=== PATIENT | female | born 1995 | race Caucasian/White ===

== ENCOUNTER 2019-03-20 17:54 | Inpatient (IN) | payer MEDICAID ==
[2019-03-20] MEDS ORDERED: LORazepam 2 MG/ML SDV IVPUSH ONE ×2 (18:40→20:47)
[2019-03-20] MEDS ORDERED: Sodium Chloride 0.9% 10 ML Syringe FLUSH PRN (18:41)
[2019-03-20] MEDS ORDERED: Lactated Ringers 1,000 ML IV ONE ×2 (18:43→19:50)
--- NOTE | 2019-03-20 20:50 | EDM.PDOCBH ---
ED HPI GENERAL MEDICAL PROBLEM - General Chief Complaint: Behavioral/Psych Stated Complaint: PYSCH Time Seen by Provider: 03/20/19 19:45 Source of Information: Reports: Patient, Family (mother ) History Limitations: Reports: Altered Mental Status (flight of thought and manic behavior), Combative/Threatening (resistant to cares and evaluation ) - History of Present Illness INITIAL COMMENTS - FREE TEXT/NARRATIVE: 24 year old female brought to ER by mother due to out of control behavior. Mother called the ER before arriving due to daughter's out of control behavior and traumatic events. Patient has a known history of drug use with previous treatment within the last 2-3 years. Patient's mother is at bedside and supportive. Mother did not believe her daughter was successfully at treatment due to manipulating the treatment system not begin truthful. Patient was jailed for the last 44 days which she was free of drug use. Patient is/was living with significant other in the area. Patient was released from [facility] on Thursday this week. Patient returned to significant other and used drugs "at lot of drugs" including Heroine, Meth and Marijuana over the last 4 days. Patient got angry with significant other today and walked out of her living situation and walked from [place] to [place] this afternoon. Patient was wearing sandals on her walk and did not bring any water or thoughts of group home or cell phone. Patient arrived at the bar in [place] and was given food by patrons. Patient got a hold of mother whom drove from [place] this afternoon to find daughter and bring her to the Er for assessment. History is very limited due to patient is a very poor historian with flight of thoughts, manic speech and behavior. Mother denies child have at psychiatric medications or diagnosis in the past. Patient had a rather long history of drug use/abuse - Related Data Allergies Allergy/AdvReac Type Severity Reaction Status Date / Time No Known Allergies Allergy Verified 03/20/19 18:38 Home Meds: Home Meds NK [No Known Home Meds] 03/20/19 [History] Past Medical History Musculoskeletal History: Reports: Fracture Psychiatric History: Reports: Addiction, Anxiety, Depression - Past Surgical History HEENT Surgical History: Reports: Oral Surgery, Tonsillectomy GI Surgical History: Reports: Appendectomy Social & Family History - Tobacco Use Smoking Status *Q: Current Every Day Smoker Years of Tobacco use: 4 Packs/Tins Daily: 0.5 - Caffeine Use Caffeine Use: Reports: Coffee - Recreational Drug Use Recreational Drug Use: Yes Recreational Drug Type: Reports: Heroin, Marijuana/Hashish, Methamphetamine Recreational Drug Use Frequency: Binges ED ROS GENERAL - Review of Systems Review Of Systems: Unable To Obtain (manic and flight of thought) ED EXAM, BEHAVIORAL HEALTH - Physical Exam Exam: See Below Exam Limited By: Altered Mental Status (manic and flight of thoughts) General Appearance: Alert, Anxious, Severe Distress Eye Exam: Bilateral Eye: EOMI, PERRL Ears: Hearing Grossly Normal Nose: Normal Inspection, Normal Mucosa Throat/Mouth: Normal Inspection, Normal Lips, Normal Voice, No Airway Compromise Head: Normocephalic Neck: Normal Inspection, Full Range of Motion Respiratory/Chest: No Respiratory Distress, Normal Breath Sounds Cardiovascular: Regular Rate, Rhythm, Tachycardia GI/Abdominal: Non-Tender (Female) Exam: Deferred Back Exam: Normal Inspection, Full Range of Motion, NT Extremities: Normal Inspection, Normal Range of Motion, No Pedal Edema, Leg Pain (bruising doral aspect of bilateral feet with swelling ) Neurological: CN II-XII Intact, Inattentive (unable to follow conversation or commands due to inability to focus due to manic speech, bahavior and fight of thoughts ) COURSE, BEHAVIORAL HEALTH COMP - Course Vital Signs: Last Vital Signs Temp 35.6 C 03/20/19 18:39 Pulse 110 H 03/20/19 21:17 Resp 16 03/20/19 21:17 BP 114/80 03/20/19 21:17 Pulse Ox 96 03/20/19 21:17 Orders, Labs, Meds: Active Orders 24 hr Category Date Time Status Cardiac Monitoring [RC] .As Directed Care 03/20/19 18:41 Active Peripheral IV Care [RC] . DIRECTED Care 03/20/19 18:42 Active Vital Signs [RC] PFP Care 03/20/19 18:41 Active Foot Comp Min 3V Lt [CR] Stat Exams 03/20/19 20:48 Taken Foot Comp Min 3V Rt [CR] Stat Exams 03/20/19 20:49 Taken Lactated Ringers [Ringers, Lactated] 1,000 ml Med 03/20/19 21:00 Active IV ASDIRECTED Sodium Chloride 0.9% [Saline Flush] Med 03/20/19 18:41 Active 10 ml FLUSH ASDIRECTED PRN Peripheral IV Insertion Adult [OM.PC] Urgent Oth 03/20/19 18:41 Ordered Saline Lock Insert [OM.PC] Routine Oth 03/20/19 18:41 Ordered Medication Orders Acetaminophen (Tylenol) 650 mg PO Q4H PRN PRN Reason: Pain Lactated Ringer's (Ringers, Lactated) 1,000 mls @ 150 mls/hr IV ASDIRECTED ELVIE Last Admin: 03/20/19 21:08 Dose: 150 mls/hr Lorazepam (Ativan) 0 mg IVPUSH Q4H PRN PRN Reason: Anxiety Sodium Chloride (Saline Flush) 10 ml FLUSH ASDIRECTED PRN PRN Reason: Keep Vein Open Last Admin: 03/20/19 19:02 Dose: 10 ml Laboratory Tests 03/20/19 03/20/19 Range/Units 18:59 18:59 WBC 21.2 H (4.5-11.0) K/uL RBC 5.40 (3.30-5.50) M/uL Hgb 16.1 H (12.0-15.0) g/dL Hct 45.8 (36.0-48.0) % MCV 85 (80-98) fL MCH 30 (27-31) pg MCHC 35 (32-36) % Plt Count 363 (150-400) K/uL Neut % (Auto) 72 H (36-66) % Lymph % (Auto) 16 L (24-44) % Bullitt % (Auto) 12 H (2-6) % Eos % (Auto) 0 L (2-4) % Baso % (Auto) 0 (0-1) % Sodium 140 (140-148) mmol/L Potassium 3.6 (3.6-5.2) mmol/L Chloride 103 (100-108) mmol/L Carbon Dioxide 20 L (21-32) mmol/L Anion Gap 20.6 H (5.0-14.0) mmol/L BUN 25 H (7-18) mg/dL Creatinine 2.3 H (0.6-1.0) mg/dL Est Cr Clr Drug Dosing 34.23 mL/min Estimated GFR (MDRD) 26 L (>60) Glucose 88 (74-106) mg/dL Calcium 9.3 (8.5-10.1) mg/dL Total Bilirubin 0.9 (0.2-1.0) mg/dL AST 72 H (15-37) U/L ALT 46 (12-78) U/L Alkaline Phosphatase 78 (46-116) U/L Creatine Kinase 3465 H (26-192) U/L Total Protein 8.4 H (6.4-8.2) g/dL Albumin 4.9 (3.4-5.0) g/dL Globulin 3.5 (2.3-3.5) g/dL Albumin/Globulin Ratio 1.4 (1.2-2.2) Medications Generic Name Dose Route Start Last Admin Trade Name Anel PRN Reason Stop Dose Admin Acetaminophen 650 mg 03/20/19 21:58 Tylenol PO Q4H PRN Pain Lactated Ringer's 1,000 mls @ 150 mls/hr 03/20/19 21:00 03/20/19 21:08 Ringers, Lactated IV 150 mls/hr ASDIRECTED ELVIE Administration Lorazepam 0 mg 03/20/19 21:58 Ativan IVPUSH Q4H PRN Anxiety Sodium Chloride 10 ml 03/20/19 18:41 03/20/19 19:02 Saline Flush FLUSH 10 ml ASDIRECTED PRN Administration Keep Vein Open Discontinued Medications Generic Name Dose Route Start Last Admin Trade Name Anel PRN Reason Stop Dose Admin Lactated Ringer's 1,000 mls @ 1,000 mls/hr 03/20/19 18:43 03/20/19 18:58 Ringers, Lactated IV 03/20/19 19:42 1,000 mls/hr BOLUS ONE Administration Lactated Ringer's 1,000 mls @ 1,000 mls/hr 03/20/19 19:50 03/20/19 20:02 Ringers, Lactated IV 03/20/19 20:49 1,000 mls/hr BOLUS ONE Administration Lorazepam 2 mg 03/20/19 18:40 03/20/19 18:59 Ativan IVPUSH 03/20/19 18:41 2 mg ONETIME ONE Administration Lorazepam 2 mg 03/20/19 20:47 03/20/19 21:11 Ativan IVPUSH 03/20/19 20:48 2 mg ONETIME ONE Administration Re-Assessment/Re-Exam: IV access obtained, IVF LR 1,000ml/hr, baseline lab obtained. Obvious drug abuse and withdrawal syptoms with manic behavior and generalized muscle aches and pain. Initial vital signs concerns form severe dehydration with tachycardiac and hypotension noted. I have increased concern regarding acute kidney injury secondary to dehydration, rhabdomyolysis, and manic behavior. Patient found water in a ditch on her 8 mile walk and took a drink from the muddy water which may cause GI concerns in the next 2-5 days. Patient complaining of bilateral foot injury, bruising due to walking miles in sandals. Blood test confirm acute kidney injury with Creatine 2.3 eGFR 26, Stage G4 with severe rhabdomyolysis with CPK 3465. Patient was given 2 liters of LR then third liter at 150cc per hour. Patient was given repeat doses of Ativan to control behavior. Patient remained tachycardic during entire ER visit despite IVF, and ativan. Urine drug test positive for multiple illicit substances. I considered giving an antipsychotic for psychosis with acute anxiety with jt, flight of thoughts and behavior concerns. I spoke with hospitalist whom felt admission to ICU with monitoring would be most appropriate. I educated mother regarding blood tests and concerns regarding kidney injury due to dehydration and rhabdomyolysis which will require repeat testing and continuous IVF for correction and renal protection. remaining electrolytes without acute concerns. Patient continues to be manic and flight of thoughts but behavior is improved. I am unsure if patient has slept in the last 3-4 days. Patient ate at the bar her mother picked her up and gave her chips during per ER visit. Departure - Departure Time of Disposition: 20:52 Disposition: Admitted As Inpatient 66 Clinical Impression: Acute kidney injury (nontraumatic), Dehydration after exertion, Psychosis due to emotional stress, Anxiety, Rhabdomyolysis, Drug use, Drug-induced psychotic disorder - Discharge Information - My Orders Last 24 Hours: My Active Orders 03/20/19 18:41 Cardiac Monitoring [RC] .As Directed Vital Signs [RC] PFP Sodium Chloride 0.9% [Saline Flush] 10 ml FLUSH ASDIRECTED PRN Peripheral IV Insertion Adult [OM.PC] Urgent Saline Lock Insert [OM.PC] Routine 03/20/19 18:42 Peripheral IV Care [RC] . DIRECTED 03/20/19 20:48 Foot Comp Min 3V Lt [CR] Stat 03/20/19 20:49 Foot Comp Min 3V Rt [CR] Stat 03/20/19 21:00 Lactated Ringers [Ringers, Lactated] 1,000 ml IV ASDIRECTED - Assessment/Plan Last 24 Hours: My Active Orders 03/20/19 18:41 Cardiac Monitoring [RC] .As Directed Vital Signs [RC] PFP Sodium Chloride 0.9% [Saline Flush] 10 ml FLUSH ASDIRECTED PRN Peripheral IV Insertion Adult [OM.PC] Urgent Saline Lock Insert [OM.PC] Routine 03/20/19 18:42 Peripheral IV Care [RC] . DIRECTED 03/20/19 20:48 Foot Comp Min 3V Lt [CR] Stat 03/20/19 20:49 Foot Comp Min 3V Rt [CR] Stat 03/20/19 21:00 Lactated Ringers [Ringers, Lactated] 1,000 ml IV ASDIRECTED
[2019-03-20] MEDS: Lactated Ringers 1,000 ML IV SCH (21:08)
--- NOTE | 2019-03-20 22:56 | CRLCR ---
BILATERAL FEET INDICATION: Bilateral foot pain and swelling. COMPARISON: None. FINDINGS/IMPRESSION: There is a suggestion of callous formation about the neck of the distal right 4th metatarsal, possibly representing a subacute or chronic nondisplaced fracture. No acute fractures are identified. No definite arthritic changes are seen. There is no dislocation in either foot. Included soft tissues are within normal limits. Dictated by Rambo Pollard MD @ 03/20/2019 10:53:00 PM Dictated by: Rambo Pollard MD @ 03/20/2019 22:55:55 (Electronically Signed)
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
[2019-03-21] MEDS: LORazepam 2 MG/ML SDV IVPUSH PRN ×2 (01:57→22:27)
[2019-03-21] MEDS: Lactated Ringers 1,000 ML IV SCH ×2 (02:04→09:07)
--- NOTE | 2019-03-21 06:34 | PN ---
DATE OF SERVICE: 03/21/2019 SUBJECTIVE: A 24-year-old female with history of drug use, was recently discharged from [facility]. She was picked up by acquaintances and spent subsequent 4 days with her acquaintances in [place]. On her departure from the residence yesterday, she walked a distance of greater than 8 miles to [place] where her mother picked her up and transported her to the emergency room. By her admission, she had been using illicit agents including IV heroin and methamphetamine and was admitted with complaints of generalized pain, anxiety, and dehydration as well as suggestion of rhabdomyolysis. She had general restlessness in the fly tier hours subsequently quieting with administration of IV Ativan and has slept the remainder of the night. Her vital signs remained stable. She has not yet voided. Bladder scan shows volume of urine held within the bladder. She has had no incontinence. Resting comfortably. OBJECTIVE: Intake 1110 mL, output nil since admission. VITAL SIGNS: Temperature 36.1, pulse 85 with sinus rhythm by cardiac monitoring, blood pressure 106/62, respiratory rate 19 with O2 saturations of 97%. GENERAL: Resting comfortably. No acute respiratory distress at the current time. IMPRESSION AND PLAN: 1. Rhabdomyolysis with acute renal injury and noted elevated creatinine on admission. A.m. labs are pending this morning. We will continue to provide IV fluids. Monitor creatine kinase and renal functions. Allow dietary intake as tolerated and provide Ativan as needed for agitation and restlessness. We will need to engage discharge planning and arrangements for outpatient followup following discharge from the hospital and it is indicated that mother will be transporting Yoli back to the [place], [place] area her usual place of residence. 2. Illicit drug use as noted above. Will require re-involvement in aftercare program following discharge. William Bailey MD /[id number]
[2019-03-21] MEDS: Acetaminophen 325 MG Tab PO PRN ×3 (07:39→22:27)
[2019-03-21] MEDS: Sodium Chloride 0.9% 1,000 ML IV SCH ×2 (13:20→20:53)
--- NOTE | 2019-03-21 14:08 | CT ---
Head wo Cont CLINICAL HISTORY: Slurred speech, confusion COMPARISON: None TECHNIQUE: Transverse scans were obtained from the base of the skull through the vertex without IV contrast on a multislice, multidetector CT scanner. Auto dosage reduction and iterative reconstruction techniques employed. FINDINGS: No focal abnormal parenchymal density is identified. There is no mass effect, hemorrhage, or extraaxial collection. The basal cisterns and sulci over the convexities are normal. The ventricles are normal. IMPRESSION: Negative noncontrast CT brain for age
[2019-03-21] MEDS ORDERED: Nicotine Polacrilex 2 MG Gum CHEW PRN (14:30)
[2019-03-21] MEDS: Nicotine 14 MG/24 Hr Patch TRDERM SCH (15:56)
[2019-03-22] MEDS: Sodium Chloride 0.9% 1,000 ML IV SCH (04:09)
[2019-03-22] MEDS: Nicotine 14 MG/24 Hr Patch TRDERM SCH (09:23)
--- NOTE | 2019-03-22 13:15 | PCM.DCSUM1 ---
Discharge Summary - Hospital Course Brief History: Ms. Viramontes is a 24-year-old woman who was admitted through the emergency department with elevation in CK and acute kidney injury, secondary to overexertion and dehydration. - Discharge Data Discharge Date: 03/22/19 Discharge Disposition: Home, Self-Care 01 Condition: Fair - Discharge Diagnosis/Problem(s) (1) Acute kidney injury (nontraumatic) SNOMED Code(s): 123814609079861 ICD Code: N17.9 - ACUTE KIDNEY FAILURE, UNSPECIFIED Status: Acute Current Visit: Yes (2) Dehydration after exertion SNOMED Code(s): 314621020 ICD Code: E86.0 - DEHYDRATION Status: Acute Current Visit: Yes (3) Anxiety SNOMED Code(s): 80153349 ICD Code: F41.9 - ANXIETY DISORDER, UNSPECIFIED Status: Acute Current Visit: Yes (4) Rhabdomyolysis SNOMED Code(s): 738996292 ICD Code: M62.82 - RHABDOMYOLYSIS Status: Acute Current Visit: Yes (5) Drug use SNOMED Code(s): 153637098 ICD Code: F19.90 - OTHER PSYCHOACTIVE SUBSTANCE USE, UNSPECIFIED, UNCOMPLICATED Status: Acute Current Visit: Yes - Patient Summary/Data Hospital Course: Ms. Viramontes is a 24-year-old woman who was admitted through the emergency department with rhabdomyolysis and acute kidney injury, secondary to overexertion and dehydration. On the day of admission she had walked many miles with poor intake of liquids. She was very fatigued and weak with pain in both legs and feet. On evaluation in emergency department her CK level was noted to be elevated 3400 and her creatinine was 2.1. Other than the exertion she denied any specific injury.urine drug screen and obtained at the time of admission was positive for benzodiazepines, opioids, and methamphetamine. She was somewhat agitated in the emergency department and did receive IV lorazepam. On admission she was given IV fluids for hydration. The morning after admission CK had increased to 4200 and renal function had normalized. IV fluids were continued over the next 24 hours, on the morning of discharge CK level had improved to 2400 and renal function remain normal. She is instructed to maintain low activity level over the next week and have good intake of oral fluids. CT scan of the head without contrast was obtained after admission because of confusion and some slurred speech. CT scan of the head was unremarkable showing no significant abnormalities. She will be on limited activity as noted above and will resume a normal diet. Follow-up appointment will be scheduled with her primary care provider within one week. BMP and CK should be obtained at the time of follow-up appointment. - Patient Instructions Diet: Usual Diet as Tolerated Activity: No Strenuous Activities (for the next 7 days) Other/Special Instructions: Please schedule follow-up appointment with primary care provider within one week. BMP and CK should be obtained at the time of follow-up appointment. - Discharge Plan *PRESCRIPTION DRUG MONITORING PROGRAM REVIEWED*: Not Applicable *COPY OF PRESCRIPTION DRUG MONITORING REPORT IN PATIENT DEBI: Not Applicable Home Medications: Home Meds NK [No Known Home Meds] 03/20/19 [History] Referrals: PCP,None [Primary Care Provider] - - Discharge Summary/Plan Comment DC Time >30 min.: No - Patient Data Vitals - Most Recent: Last Vital Signs Temp 94.9 F L 03/22/19 11:42 Pulse 103 H 03/22/19 11:42 Resp 16 03/22/19 11:42 BP 105/72 03/22/19 11:42 Pulse Ox 98 03/22/19 11:42 Weight - Most Recent: 186 lb 3.203 oz I&O - Last 24 hours: Intake & Output 03/21/19 03/22/19 03/22/19 22:59 06:59 14:59 Intake Total 2286 1457 600 Output Total 550 750 Balance 1736 1457 -150 Lab Results - Last 24 hrs: Laboratory Results - last 24 hr 03/22/19 Range/Units 04:50 Sodium 144 (140-148) mmol/L Potassium 4.3 (3.6-5.2) mmol/L Chloride 111 H (100-108) mmol/L Carbon Dioxide 27 (21-32) mmol/L Anion Gap 10.3 (5.0-14.0) mmol/L BUN 6 L D (7-18) mg/dL Creatinine 0.7 (0.6-1.0) mg/dL Est Cr Clr Drug Dosing 121.23 mL/min Estimated GFR (MDRD) > 60 (>60) Glucose 93 (74-106) mg/dL Calcium 8.2 L (8.5-10.1) mg/dL Creatine Kinase 2313 H (26-192) U/L Med Orders - Current: Current Medications Acetaminophen (Tylenol) 650 mg PO Q4H PRN PRN Reason: Pain Last Admin: 03/21/19 22:27 Dose: 650 mg Sodium Chloride (Normal Saline) 1,000 mls @ 125 mls/hr IV ASDIRECTED [facility] Last Admin: 03/22/19 04:09 Dose: 125 mls/hr Lorazepam (Ativan) 0 mg IVPUSH Q4H PRN PRN Reason: Anxiety Last Admin: 03/21/19 22:27 Dose: 1 mg Nicotine (Habitrol) 14 mg TRDERM DAILY [facility] Last Admin: 03/22/19 09:23 Dose: 14 mg Nicotine Polacrilex (Nicorelief) 2 mg CHEW Q1H PRN PRN Reason: nicotine needs Sodium Chloride (Saline Flush) 10 ml FLUSH ASDIRECTED PRN PRN Reason: Keep Vein Open Last Admin: 03/20/19 19:02 Dose: 10 ml Discontinued Medications Lactated Ringer's (Ringers, Lactated) 1,000 mls @ 1,000 mls/hr IV BOLUS ONE Stop: 03/20/19 19:42 Last Admin: 03/20/19 18:58 Dose: 1,000 mls/hr Lactated Ringer's (Ringers, Lactated) 1,000 mls @ 1,000 mls/hr IV BOLUS ONE Stop: 03/20/19 20:49 Last Admin: 03/20/19 20:02 Dose: 1,000 mls/hr Lactated Ringer's (Ringers, Lactated) 1,000 mls @ 150 mls/hr IV ASDIRECTED [facility] Last Admin: 03/21/19 09:07 Dose: 150 mls/hr Lorazepam (Ativan) 2 mg IVPUSH ONETIME ONE Stop: 03/20/19 18:41 Last Admin: 03/20/19 18:59 Dose: 2 mg Lorazepam (Ativan) 2 mg IVPUSH ONETIME ONE Stop: 03/20/19 20:48 Last Admin: 03/20/19 21:11 Dose: 2 mg - Exam General: Reports: Alert, Oriented, Cooperative, No Acute Distress Lungs: Reports: Clear to Auscultation, Normal Respiratory Effort Cardiovascular: Reports: Regular Rate, Regular Rhythm, No Murmurs GI/Abdominal Exam: Soft, Non-Tender, No Organomegaly, No Distention Extremities: Non-Tender, No Pedal Edema
== END 2019-03-22 13:40 | disposition home or self-care (01) | DRG 565 ==
LOC: JP.ED 17:54 → JP.ICU 20:59 → JP.MS 03-21 13:12
PROVIDERS: ADMIT Family Medicine; ATTEND Hospitalist
DX: T79.6XXA Traumatic ischemia of muscle, initial encounter (principal); N17.9 Acute kidney failure, unspecified; X50.9XXA Other and unspecified overexertion or strenuous movements or postures, initial encounter; F32.9 Major depressive disorder, single episode, unspecified; E86.0 Dehydration; F11.90 Opioid use, unspecified, uncomplicated; F15.90 Other stimulant use, unspecified, uncomplicated; F41.9 Anxiety disorder, unspecified; Z87.820 Personal history of traumatic brain injury; R52 Pain, unspecified; F17.210 Nicotine dependence, cigarettes, uncomplicated
CPT/HCPCS: 36415; 51798; 70450; 70450-26; 73630-LT; 73630-RT; 80048; 80053; 80305-QW; 81001; 82550; 84702; 85025; 96361; 96374; 99284; 99285-25; A9270-GY; J2060; J7030; J7120

== ENCOUNTER 2023-02-02 20:31 | Emergency (ER) | payer MEDICAID | END 2023-02-02 23:22 | disposition home or self-care (01) | LOC: JP.ED 20:31 | DX: M27.3 Alveolitis of jaws (principal); F17.210 Nicotine dependence, cigarettes, uncomplicated | CPT/HCPCS: 99282 ==